=== PATIENT | male | born 1940 | race Caucasian/White ===

== ENCOUNTER 2021-11-20 13:03 | Outpatient (CLI) | payer MEDICARE, MEDICAID | END 2021-11-20 13:04 | disposition critical access hospital (66) | LOC: EMS 13:03 | DX: R07.1 Chest pain on breathing (principal); M54.9 Dorsalgia, unspecified | CPT/HCPCS: A0425; A0429 ==

== ENCOUNTER 2021-11-20 13:20 | Emergency (ER) | payer MEDICARE, MEDICAID ==
[2021-11-20] MEDS ORDERED: DEXAMETHASONE 10 MG/ML VIAL IVP STA (14:00)
[2021-11-20] MEDS ORDERED: SODIUM CHLORIDE 0.9% 1,000 ML IV STA (14:00)
[2021-11-20] MEDS ORDERED: KETOROLAC 30 MG/ML VIAL IVP STA (14:00)
--- NOTE | 2021-11-20 14:02 | ED Physician Documentation ---
PD HPI DYSPNEA - Stated complaint Stated Complaint: SOA/PX - Chief complaint Chief Complaint: Back Pain - History obtained from History obtained from: Patient - History of Present Illness Timing - onset: How many days ago (10) Timing - onset during: Rest Timing - duration: Days (10) Timing - details: Gradual onset, Still present Inciting event(s): URI Improved by: Rest Worsened by: Exertion, Coughing Associated symptoms: Fever, Cough, Wheezing Similar symptoms before: Has not had sx before Recently seen: Not recently seen - Additional information Additional information: Previously well 81-year-old male who does not have a doctor or go to the doctor as developed dyspnea and associated back pain over the past 10 days. He is complaining that it is difficult for him to get any comfort at all by any position for any length of time. He has an ache to his back that is the entire back and he is just uncomfortable. He does have a cough is not bringing any phlegm up he is coughing 6 or 7 times a day he has intermittent fever he is unvaccinated for Covid. Review of Systems Constitutional: reports: Fever, Myalgias, Fatigue Eyes: denies: Decreased vision Ears: denies: Ear pain Nose: reports: Congestion. denies: Rhinorrhea / runny nose Throat: denies: Sore throat Cardiac: denies: Chest pain / pressure, Palpitations, Pedal edema, Calf pain Respiratory: reports: Dyspnea, Cough GI: denies: Abdominal Pain, Nausea, Vomiting, Diarrhea : denies: Dysuria, Frequency Skin: denies: Rash Musculoskeletal: reports: Back pain. denies: Neck pain, Extremity pain Neurologic: denies: Generalized weakness, Focal weakness, Numbness PD PAST MEDICAL HISTORY - Present Medications Home Medications: Ambulatory Orders Medication Instructions Recorded Confirmed Albuterol Sulf [Ventolin Hfa 1 - 2 puffs INH Q4HR PRN #1 inhaler 11/20/21 Inhaler] Dexamethasone [Decadron] 6 mg PO DAILY #8 tablet 11/20/21 HYDROcod/ACETAM 5/325 [[place] 5/325] 1 - 2 tablet PO Q6H PRN #14 tablet 11/20/21 - Allergies Allergies/Adverse Reactions: Allergies Allergy/AdvReac Type Severity Reaction Status Date / Time No Known Drug Allergies Allergy Verified 11/20/21 13:30 PD ED PE NORMAL - Vitals Vital signs reviewed: Yes (hypertensive ) - General General: Alert and oriented X 3, No acute distress, Well developed/nourished - HEENT HEENT: Atraumatic, PERRL, EOMI - Neck Neck: Supple, no meningeal sign, No bony TTP - Cardiac Cardiac: RRR, No murmur - Respiratory Respiratory: Other (tachypneic at rest with shallow breaths and inspritory crackles at the bases. ) - Abdomen Abdomen: Soft, Non tender - Back Back: No CVA TTP, No spinal TTP - Derm Derm: Normal color, Warm and dry, No rash - Extremities Extremities: No deformity, No edema - Neuro Neuro: Alert and oriented X 3, hris administrator 2-12 intact, No motor deficit, No sensory deficit, Normal speech Eye Opening: Spontaneous Motor: Obeys Commands Verbal: Oriented GCS Score: 15 - Psych Psych: Normal mood, Normal affect Results - Vitals Vitals: Vital Signs - 24 hr 11/20/21 11/20/21 11/20/21 13:25 13:49 15:44 Temperature 37.7 C Heart Rate 82 78 Respiratory 22 22 28 H Rate Blood Pressure 169/95 H O2 Saturation 96 96 11/20/21 16:10 Temperature Heart Rate 78 Respiratory 21 Rate Blood Pressure 165/85 H O2 Saturation 97 Oxygen O2 Source Room air Oxygen Flow Rate 2 - Labs Labs: Laboratory Tests 11/20/21 11/20/21 11/20/21 13:40 13:40 13:40 WBC 4.5 L RBC 4.09 L Hgb 14.0 Hct 41.2 L MCV 100.7 H MCH 34.2 H MCHC 34.0 RDW 12.0 Plt Count 46 L MPV 13.3 H Neut # (Auto) 3.5 Lymph # (Auto) 0.7 L Dare # (Auto) 0.4 Eos # (Auto) 0.0 Baso # (Auto) 0.0 Absolute Nucleated RBC 0.00 Band Neuts % (Manual) Not Reportable Abnorm Lymph % (Manual) Not Reportable Nucleated RBC % 0.0 Neutrophils # (Manual) Not Reportable Lymphocytes # (Manual) Not Reportable Monocytes # (Manual) Not Reportable Eosinophils # (Manual) Not Reportable Basophils # (Manual) Not Reportable Differential Comment MANUAL=AUTO DIFF Manual Slide Review Indicated Platelet Estimate DECREASED (<130,000) Platelet Morphology NORMAL APPEARANCE RBC Morph Micro Appear NORMAL APPEARANCE Sodium 135 Potassium 4.3 Chloride 101 Carbon Dioxide 22 Anion Gap 12.0 BUN 19 Creatinine 0.9 Estimated GFR (MDRD) 81 L Glucose 138 H Calcium 9.0 Total Bilirubin 0.8 AST 28 ALT 19 Alkaline Phosphatase 43 B-Natriuretic Peptide 40 Total Protein 7.5 Albumin 4.2 Globulin 3.3 Albumin/Globulin Ratio 1.3 Lipase 31 Nasal Adenovirus (PCR) Nasal B. parapertussis DNA (PCR) Nasal Coronavir 229E PCR Nasal Coronavir HKU1 PCR Nasal Coronavir NL63 PCR Nasal Coronavir OC43 PCR Nasal Enterovir/Rhinovir PCR Nasal Influenza B PCR Nasal Influenza A PCR Nasal Parainfluen 1 PCR Nasal Parainfluen 2 PCR Nasal Parainfluen 3 PCR Nasal Parainfluen 4 PCR Nasal RSV (PCR) Nasal B.pertussis DNA PCR Nasal C.pneumoniae (PCR) Obed Human Metapneumo PCR Nasal M.pneumoniae (PCR) Nasal SARS-CoV-2 (PCR) 11/20/21 14:30 WBC RBC Hgb Hct MCV MCH MCHC RDW Plt Count MPV Neut # (Auto) Lymph # (Auto) Dare # (Auto) Eos # (Auto) Baso # (Auto) Absolute Nucleated RBC Band Neuts % (Manual) Abnorm Lymph % (Manual) Nucleated RBC % Neutrophils # (Manual) Lymphocytes # (Manual) Monocytes # (Manual) Eosinophils # (Manual) Basophils # (Manual) Differential Comment Manual Slide Review Platelet Estimate Platelet Morphology RBC Morph Micro Appear Sodium Potassium Chloride Carbon Dioxide Anion Gap BUN Creatinine Estimated GFR (MDRD) Glucose Calcium Total Bilirubin AST ALT Alkaline Phosphatase B-Natriuretic Peptide Total Protein Albumin Globulin Albumin/Globulin Ratio Lipase Nasal Adenovirus (PCR) NOT DETECTED Nasal B. parapertussis DNA (PCR) NOT DETECTED Nasal Coronavir 229E PCR NOT DETECTED Nasal Coronavir HKU1 PCR NOT DETECTED Nasal Coronavir NL63 PCR NOT DETECTED Nasal Coronavir OC43 PCR NOT DETECTED Nasal Enterovir/Rhinovir PCR NOT DETECTED Nasal Influenza B PCR NOT DETECTED Nasal Influenza A PCR NOT DETECTED Nasal Parainfluen 1 PCR NOT DETECTED Nasal Parainfluen 2 PCR NOT DETECTED Nasal Parainfluen 3 PCR NOT DETECTED Nasal Parainfluen 4 PCR NOT DETECTED Nasal RSV (PCR) NOT DETECTED Nasal B.pertussis DNA PCR NOT DETECTED Nasal C.pneumoniae (PCR) NOT DETECTED Obed Human Metapneumo PCR NOT DETECTED Nasal M.pneumoniae (PCR) NOT DETECTED Nasal SARS-CoV-2 (PCR) DETECTED A - Rads (name of study) chest Radiology: Prelim report reviewed (Impression: No acute process.), EMP read indepedently, See rad report PD MEDICAL DECISION MAKING - ED course Complexity details: reviewed results, re-evaluated patient, considered differential, d/w patient ED course: 81-year-old male with a URI for the past 10 days test positive for Covid here in the emergency department his chest x-ray is without evidence of infiltrate. He does have some shortness of breath and diminished breath sounds. He is administered IV saline, toradal, decadron and a duo-neb treatment. He has improvement in his breathing and back pain. He is not hypoxic. We made arran gement for the patient to get back home. We made arrangements to picker his medications for him as well. Departure - Departure Disposition: 01 Home, Self Care Clinical Impression: COVID Condition: Stable Instructions: COVID-19 [facility], Flu and Cold: Nutrition, Prevention and Treatment Tips Follow-Up: Maximiliano Funez MD [Provider Admit Priv/Credential] - Prescriptions: Albuterol Sulf [Ventolin Hfa Inhaler] 1 - 2 puffs INH Q4HR PRN #1 inhaler PRN Reason: Shortness Of Air/Wheezing Dexamethasone [Decadron] 6 mg PO DAILY #8 tablet HYDROcod/ACETAM 5/325 [Collins 5/325] 1 - 2 tablet PO Q6H PRN #14 tablet PRN Reason: Pain Comments: Mars, today you have Covid and it looks like you have had Covid for more than 1 week. You have probably passed the danger area of this. I have written a prescription for some dexamethasone to be taken for the next 8 days. In addition I have written a prescription for some albuterol to use as an inhaler as needed and some hydrocodone to use as needed for pain control. If you have worsening of your symptoms worsening shortness of breath return to the emergency department.
[2021-11-20 14:07] LABS: EOSINOPHILS % (AUTO) 0.2 %; HCT - HEMATOCRIT 41.2 % (42.0-52.0); LYMPHOCYTES # (AUTO) 0.7 10^3/uL (1.5-3.5); LYMPHOCYTES % (AUTO) 15.6 %; MEAN CORPUSCULAR HEMOGLOBIN 34.2 pg (27.0-31.0); MEAN CORPUSCULAR VOLUME 100.7 fL (80.0-94.0); MEAN PLATELET VOLUME 13.3 fL (7.4-11.4); MONOCYTES # (AUTO) 0.4 10^3/uL (0.0-1.0); MONOCYTES % (AUTO) 7.9 %; NEUTROPHILS # (AUTO) 3.5 10^3/uL (1.5-6.6); NEUTROPHILS % (AUTO) 76.1 %; PLT - PLATELET COUNT 46 10^3/uL (130-450); RED BLOOD COUNT 4.09 10^6/uL (4.70-6.10); WHITE BLOOD COUNT 4.5 x10^3/uL (4.8-10.8)
[2021-11-20 14:10] LABS: SLIDE REVIEW? Indicated
[2021-11-20 14:15] LABS: ALBUMIN 4.2 g/dL (3.2-5.5); ALBUMIN/GLOBULIN RATIO 1.3 (1.0-2.2); BILIRUBIN,TOTAL 0.8 mg/dL (0.2-1.0); CREATININE 0.9 mg/dL (0.6-1.2); POTASSIUM 4.3 mmol/L (3.5-5.0); TOTAL PROTEIN 7.5 g/dL (6.7-8.2)
--- NOTE | 2021-11-20 14:31 | XRAY Report ---
PROCEDURE: Chest 1 View X-Ray INDICATIONS: chest pain TECHNIQUE: One view of the chest was acquired. COMPARISON: None FINDINGS: Surgical changes and devices: None. Lungs and pleura: No pleural effusions or pneumothorax. Lungs are clear. Mediastinum: Mediastinal contours appear normal. Heart size is normal. Bones and chest wall: No suspicious bony lesions. Overlying soft tissues appear unremarkable. IMPRESSION: No acute process. Reviewed by: Rony Caballero MD on 11/20/2021 2:30 PM PST Approved by: Rony Caballero MD on 11/20/2021 2:30 PM PST Station ID: [id number]
[2021-11-20] MEDS ORDERED: IPRATROPIUM/ALBUTEROL 3 ML NEB INH STA (14:47)
[2021-11-20 15:16] LABS: DIFFERENTIAL COMMENT MANUAL=AUTO DIFF; PLATELET ESTIMATE, MANUAL DECREASED (<130,000) (NORMAL); PLATELET MORPHOLOGY NORMAL APPEARANCE (NORMAL); RBC MORPHOLOGY (MULTIPLE) NORMAL APPEARANCE (NORMAL)
[2021-11-20 15:29] LABS: CORONAVIRUS 229E-RESP PCR NOT DETECTED; CORONAVIRUS HKU1-RESP PCR NOT DETECTED; CORONAVIRUS NL63-RESP PCR NOT DETECTED; CORONAVIRUS OC43-RESP PCR NOT DETECTED
[2021-11-20 15:33] LABS: B. PARAPERTUSSIS- RESP PCR PAN NOT DETECTED; HUMAN METAPNEUMOVIRUS NOT DETECTED; INFLUENZA A- RESP PCR PANEL NOT DETECTED; INFLUENZA B - RESP PCR PANEL NOT DETECTED; PARAINFLUENZA VIRUS 1 NOT DETECTED; PARAINFLUENZA VIRUS 2 NOT DETECTED; PARAINFLUENZA VIRUS 3 NOT DETECTED; PARAINFLUENZA VIRUS 4 NOT DETECTED; RHINOVIRUS/ENTEROVIRUS NOT DETECTED; RSV- RESP PCR PANEL NOT DETECTED; SARS-CoV-2 -RESP PCR PANEL DETECTED
[2021-11-20 15:34] LABS: B. PERTUSSIS- RESP PCR PANEL NOT DETECTED; C. PNEUMONIAE- RESP PCR PANEL NOT DETECTED; M. PNEUMONIAE- RESP PCR PANEL NOT DETECTED
[2021-11-20 18:16] VITALS: BP 165/95
== END 2021-11-20 19:32 | disposition home or self-care (01) ==
LOC: EDUNIT# → ED 13:20
DX: U07.1 COVID-19 (principal); J06.9 Acute upper respiratory infection, unspecified
CPT/HCPCS: 0202U; 36415; 80053; 83690; 83880; 85025; 94640; 94664; 96374; 99282

== ENCOUNTER 2021-11-20 19:31 | Outpatient (CLI) | payer MEDICARE, MEDICAID | END 2021-11-20 19:32 | disposition home or self-care (01) | LOC: EMS 19:31 | PROVIDERS: ATTEND Emergency Medicine | DX: U07.1 COVID-19 (principal) | CPT/HCPCS: A0425; A0428 ==

== ENCOUNTER 2021-11-25 15:06 | Outpatient (CLI) | payer MEDICARE, MEDICAID | END 2021-11-25 15:07 | disposition critical access hospital (66) | LOC: EMS 15:06 | DX: U07.1 COVID-19 (principal) | CPT/HCPCS: A0425; A0429 ==

== ENCOUNTER 2021-11-25 15:22 | Emergency (ER) | payer MEDICARE, MEDICAID ==
--- NOTE | 2021-11-25 15:52 | XRAY Report ---
PROCEDURE: Chest 1 View X-Ray INDICATIONS: Chest Pain TECHNIQUE: One view of the chest was acquired. COMPARISON: November 20, 2021 FINDINGS: SUPPORT DEVICES: None. LUNGS/PLEURA: Bibasilar streaky densities, likely reflecting atelectasis. No focal consolidation, ple ural effusion or space-occupying pneumothorax. MEDIASTINUM: The cardiomediastinal silhouette is within normal limits. BONES/SOFT TISSUES: No acute abnormality. IMPRESSION: 1.Bibasilar atelectasis. Reviewed by: Casimiro Marmolejo MD on 11/25/2021 3:51 PM PST Approved by: Casimiro Marmolejo MD on 11/25/2021 3:51 PM [facility] Station ID: [id number]
--- NOTE | 2021-11-25 16:06 | ED Physician Documentation ---
History of Present Illness - Stated complaint Stated Complaint: C+/SOA - Chief complaint Chief Complaint: Resp - Additonal information Additional information: 81-year-old male return to the emergency department for evaluation of shortness of air especially at rest. He states that it is better when he walks. He was seen in this ER recently for similar found to be COVID-19 positive. He is completing a course of Decadron as well as albuterol. Patient states that he is not yet vaccinated for COVID-19. He presented via EMS with room air saturations of 94 to 97% and remains at 97% here without oxygen therapy. Since being discharged home a few days ago he states that he has had some constipation though this is not a new symptom. He is denying chest pain, fevers, nausea or vomiting. Review of Systems Constitutional: reports: Fatigue. denies: Fever, Chills Eyes: reports: Reviewed and negative Ears: reports: Reviewed and negative Nose: reports: Reviewed and negative Throat: reports: Reviewed and negative Cardiac: denies: Chest pain / pressure, Palpitations, Pedal edema, Calf pain Respiratory: reports: Dyspnea. denies: Cough, Hemoptysis, Wheezing GI: reports: Reviewed and negative : reports: Reviewed and negative Skin: reports: Reviewed and negative Musculoskeletal: reports: Reviewed and negative PD PAST MEDICAL HISTORY - Present Medications Home Medications: Ambulatory Orders Medication Instructions Recorded Confirmed Albuterol Sulf [Ventolin Hfa 1 - 2 puffs INH Q4HR PRN #1 inhaler 11/20/21 Inhaler] Dexamethasone [Decadron] 6 mg PO DAILY #8 tablet 11/20/21 HYDROcod/ACETAM 5/325 [[place] 5/325] 1 - 2 tablet PO Q6H PRN #14 tablet 11/20/21 polyethylene glycoL 3350 [Miralax] 17 gm PO DAILY PRN #1 bottle 11/25/21 - Allergies Allergies/Adverse Reactions: Allergies Allergy/AdvReac Type Severity Reaction Status Date / Time No Known Drug Allergies Allergy Verified 11/25/21 15:30 PD ED PE NORMAL - General General: Alert and oriented X 3, No acute distress, Well developed/nourished - HEENT HEENT: Atraumatic, Moist mucous membranes - Neck Neck: Supple, no meningeal sign, No adenopathy - Cardiac Cardiac: RRR, No murmur, No gallop - Respiratory Respiratory: No respiratory distress, Clear bilaterally - Abdomen Abdomen: Normal bowel sounds, Soft, Non tender - Back Back: No CVA TTP, No spinal TTP - Derm Derm: Normal color, Warm and dry, No rash - Extremities Extremities: No deformity, No tenderness to palpate, Normal ROM s pain - Neuro Neuro: Alert and oriented X 3, multimedia teacher 2-12 intact Eye Opening: Spontaneous Motor: Obeys Commands Verbal: Oriented GCS Score: 15 Results - Vitals Vitals: Vital Signs - 24 hr 11/25/21 15:27 Temperature 35.9 C L Heart Rate 65 Respiratory 20 Rate Blood Pressure 202/105 H O2 Saturation 97 Oxygen O2 Source Room air - EKG (time done) 1605 Rate: Rate (enter#) (63) Rhythm: NSR [place]: Normal, Anterior hemiblock Intervals: Normal MO. No: Prolonged QT QRS: Normal Ischemia: Non specific changes (inferior leads) Compare to prior EKG: Old EKG unavailable Computer interpretation: Agree with computer - Labs Labs: Laboratory Tests 11/25/21 11/25/21 11/25/21 15:59 15:59 15:59 WBC 7.0 RBC 3.88 L Hgb 13.1 L Hct 38.2 L MCV 98.5 H MCH 33.8 H MCHC 34.3 RDW 11.6 L Plt Count 62 L MPV 13.5 H Neut # (Auto) 6.2 Lymph # (Auto) 0.4 L Schuyler # (Auto) 0.3 Eos # (Auto) 0.0 Baso # (Auto) 0.0 Absolute Nucleated RBC 0.00 Band Neuts % (Manual) Not Reportable Abnorm Lymph % (Manual) Not Reportable Nucleated RBC % 0.0 Neutrophils # (Manual) Not Reportable Lymphocytes # (Manual) Not Reportable Monocytes # (Manual) Not Reportable Eosinophils # (Manual) Not Reportable Basophils # (Manual) Not Reportable Differential Comment MANUAL=AUTO DIFF Platelet Estimate DECREASED (<130,000) Platelet Morphology 1+ GIANT PLATELETS RBC Morph Micro Appear NORMAL APPEARANCE PT 11.7 INR 1.1 Sodium 131 L Potassium 4.2 Chloride 98 L Carbon Dioxide 23 Anion Gap 10.0 BUN 24 H Creatinine 0.7 Estimated GFR (MDRD) 109 Glucose 218 H Calcium 8.6 Total Bilirubin 0.6 AST 26 ALT 39 Alkaline Phosphatase 44 Troponin I High Sens Total Protein 6.5 L Albumin 3.5 Globulin 3.0 Albumin/Globulin Ratio 1.2 Lipase 40 11/25/21 15:59 WBC RBC Hgb Hct MCV MCH MCHC RDW Plt Count MPV Neut # (Auto) Lymph # (Auto) Schuyler # (Auto) Eos # (Auto) Baso # (Auto) Absolute Nucleated RBC Band Neuts % (Manual) Abnorm Lymph % (Manual) Nucleated RBC % Neutrophils # (Manual) Lymphocytes # (Manual) Monocytes # (Manual) Eosinophils # (Manual) Basophils # (Manual) Differential Comment Platelet Estimate Platelet Morphology RBC Morph Micro Appear PT INR Sodium Potassium Chloride Carbon Dioxide Anion Gap BUN Creatinine Estimated GFR (MDRD) Glucose Calcium Total Bilirubin AST ALT Alkaline Phosphatase Troponin I High Sens 8.2 Total Protein Albumin Globulin Albumin/Globulin Ratio Lipase - Rads (name of study) CXR Radiology: Final report received (bibasilar atelectasis) PD MEDICAL DECISION MAKING - ED course Complexity details: reviewed results, re-evaluated patient, considered differential, d/w patient ED course: 81-year-old male presents to the emergency department for evaluation of shortness of air and fatigue and generalized weakness. He was diagnosed as Covid positive on 20 November. He reports that at home he is able to do his activities laundry dishes and shower. However he just feels short of air. He has no hypoxia. He does not require oxygen. Repeat chest x-ray today does not show any focal infiltrates. Screening labs show a negative troponin. His sodium is mildly low at 131. NO clinical evidence of CHF. I discussed with patient the etiology of symptoms. no admittable diagnosis. No calf pain, leg swelling. Low risk by wells criteria. Emergent return precautions discussed Departure - Departure Disposition: Home, Self Care Clinical Impression: Generalized weakness, Shortness of breath Condition: Stable Record reviewed to determine appropriate education?: Yes Prescriptions: polyethylene glycoL 3350 [Miralax] 17 gm PO DAILY PRN #1 bottle PRN Reason: Constipation Comments: Mars you are seen in the emergency department today for generalized weakness and shortness of air. You were confirmed positive for COVID-19 with your last ER visit. However reassuringly your oxygen levels are normal and you do not require oxygen. Your chest x-ray today does not show infiltrates or pneumonia. It is very common for those that have COVID-19 to feel very tired fatigued and short of air. Please finish the full course of steroids prescribed for you with your last ER visit. You can continue to use the albuterol 2-3 times a day. If you develop chest pain, have any fainting episodes then you should return immediately to the ER. You are recommended to obtain the COVID-19 vaccine when able At least 90 days from now.
[2021-11-25 16:21] LABS: HCT - HEMATOCRIT 38.2 % (42.0-52.0); HGB - HEMOGLOBIN 13.1 g/dL (14.0-18.0); LYMPHOCYTES # (AUTO) 0.4 10^3/uL (1.5-3.5); LYMPHOCYTES % (AUTO) 5.7 %; MEAN CORPUSCULAR HEMOGLOBIN 33.8 pg (27.0-31.0); MEAN CORPUSCULAR HGB CONC 34.3 g/dL (32.0-36.0); MEAN CORPUSCULAR VOLUME 98.5 fL (80.0-94.0); MEAN PLATELET VOLUME 13.5 fL (7.4-11.4); MONOCYTES # (AUTO) 0.3 10^3/uL (0.0-1.0); MONOCYTES % (AUTO) 4.2 %; NEUTROPHILS # (AUTO) 6.2 10^3/uL (1.5-6.6); NEUTROPHILS % (AUTO) 89.2 %; PLT - PLATELET COUNT 62 10^3/uL (130-450); RED BLOOD COUNT 3.88 10^6/uL (4.70-6.10); RED CELL DISTRIBUTION WIDTH 11.6 % (12.0-15.0)
[2021-11-25 16:31] LABS: ALBUMIN 3.5 g/dL (3.2-5.5); ALBUMIN/GLOBULIN RATIO 1.2 (1.0-2.2); BILIRUBIN,TOTAL 0.6 mg/dL (0.2-1.0); CALCIUM 8.6 mg/dL (8.5-10.3); CREATININE 0.7 mg/dL (0.6-1.2); POTASSIUM 4.2 mmol/L (3.5-5.0); TOTAL PROTEIN 6.5 g/dL (6.7-8.2)
[2021-11-25 16:39] LABS: INR 1.1 (0.8-1.2); PT - PROTHROMBIN TIME 11.7 secs (9.9-12.6)
[2021-11-25 17:04] LABS: DIFFERENTIAL COMMENT MANUAL=AUTO DIFF; PLATELET ESTIMATE, MANUAL DECREASED (<130,000) (NORMAL); RBC MORPHOLOGY (MULTIPLE) NORMAL APPEARANCE (NORMAL)
[2021-11-25 18:39] VITALS: BP 168/96
== END 2021-11-25 18:49 | disposition home or self-care (01) ==
LOC: EDUNIT# → ED 15:22
DX: U07.1 COVID-19 (principal); R06.02 Shortness of breath; R53.1 Weakness; E87.1 Hypo-osmolality and hyponatremia; I44.4 Left anterior fascicular block
CPT/HCPCS: 36415; 80053; 83690; 84484; 85025; 85610; 93005; 99283; 99284

== ENCOUNTER 2021-11-25 18:45 | Outpatient (CLI) | payer MEDICARE, MEDICAID | END 2021-11-25 18:46 | disposition home or self-care (01) | LOC: EMS 18:45 | PROVIDERS: ATTEND Registered Nurse | DX: U07.1 COVID-19 (principal) | CPT/HCPCS: A0425; A0428 ==

== ENCOUNTER 2023-05-14 10:32 | Emergency (ER) | payer MEDICARE, MEDICAID ==
[2023-05-14] MEDS ORDERED: SODIUM CHLORIDE 0.9% 1,000 ML IV STA (11:22)
[2023-05-14 11:43] LABS: BASOPHILS % (AUTO) 0.6 %; EOSINOPHILS # (AUTO) 0.2 10^3/uL (0.0-0.7); EOSINOPHILS % (AUTO) 2.5 %; HCT - HEMATOCRIT 38.6 % (42.0-52.0); HGB - HEMOGLOBIN 12.9 g/dL (14.0-18.0); LYMPHOCYTES # (AUTO) 1.2 10^3/uL (1.5-3.5); LYMPHOCYTES % (AUTO) 18.8 %; MEAN CORPUSCULAR HEMOGLOBIN 33.5 pg (27.0-31.0); MEAN CORPUSCULAR HGB CONC 33.4 g/dL (32.0-36.0); MEAN CORPUSCULAR VOLUME 100.3 fL (80.0-94.0); MEAN PLATELET VOLUME 12.1 fL (7.4-11.4); MONOCYTES # (AUTO) 0.5 10^3/uL (0.0-1.0); MONOCYTES % (AUTO) 7.9 %; NEUTROPHILS # (AUTO) 4.4 10^3/uL (1.5-6.6); PLT - PLATELET COUNT 100 10^3/uL (130-450); RED BLOOD COUNT 3.85 10^6/uL (4.70-6.10); RED CELL DISTRIBUTION WIDTH 12.7 % (12.0-15.0); WHITE BLOOD COUNT 6.3 x10^3/uL (4.8-10.8)
[2023-05-14] MEDS ORDERED: LORazepam 2 MG/ML VIAL IVP STA (11:44)
--- NOTE | 2023-05-14 11:44 | ED Physician Documentation ---
History of Present Illness - Stated complaint Stated Complaint: SOA/WEAK/MHE - Chief complaint Chief Complaint: General - Additonal information Additional information: 83-year-old male was brought to the emergency department by his friend for evaluation of generalized weakness and anxiety. 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 He recently was seen at [facility] where he was told to take a second gabapentin each day as well as was started on Oxy for the leg pain. Patient is also under extreme stress and due to financial issues is having to move housing. Reportedly he needs to be out of his apartment in the next 48 hours. His friend said he called him this morning stated he was weak and shaking. The patient states he felt very short of air though he did not have chest pain. In the exam room the patient prefers to keep his eyes closed when talking. He has fluid speech. The vital signs on the monitor show a blood pressure of 143/74. Heart rate is sinus rhythm in the 70s. Room air saturations 100%. Patient appears exceedingly anxious. Patient states he is simply very stressed out. I did offer him a single dose of Ativan for anxiety which he agreed to. Unfortunately no social work is available at [facility] at this time. Review of Systems Constitutional: denies: Fever, Myalgias Throat: reports: Reviewed and negative Cardiac: reports: Reviewed and negative Respiratory: reports: Reviewed and negative GI: reports: Reviewed and negative : reports: Reviewed and negative Neurologic: reports: Generalized weakness Psychiatric: reports: Anxiety. denies: Suicidal, Homicidal, Hallucinations, Delusions PD PAST MEDICAL HISTORY - Past Medical History Past Medical History: Yes Respiratory: Other Other Past Medical History: COVID - Past Surgical History Past Surgical History: Yes General: Colonoscopy - Present Medications Home Medications: Ambulatory Orders Medication Instructions Recorded Confirmed Albuterol Sulf [Ventolin Hfa 1 - 2 puffs INH Q4HR PRN #1 inhaler 11/20/21 Inhaler] Albuterol Sulf [Ventolin Hfa 1 - 2 puffs INH Q4HR PRN #1 each 05/14/23 Inhaler] Gabapentin [Neurontin] 300 mg PO HS 05/14/23 05/14/23 LORazepam [Ativan] 1 mg PO BID PRN #10 tablet 05/14/23 Oxycodone HCl/Acetaminophen 5 - 325 mg PO PRN PRN 05/14/23 05/14/23 [Percocet 5-325 mg Tablet] - Allergies Allergies/Adverse Reactions: Allergies Allergy/AdvReac Type Severity Reaction Status Date / Time No Known Drug Allergies Allergy Verified 11/25/21 15:30 - Social History Does the pt smoke?: No Smoking Status: Never smoker Does the pt drink ETOH?: No Does the pt have substance abuse?: Yes Substance Use and Type: Marijuana - POLST Patient has POLST: No PD ED PE NORMAL - General General: Alert and oriented X 3. No: No acute distress (Anxious appearing) - HEENT HEENT: Atraumatic - Neck Neck: Supple, no meningeal sign - Cardiac Cardiac: RRR, No murmur - Respiratory Respiratory: Clear bilaterally - Abdomen Abdomen: Normal bowel sounds, Soft - Back Back: No CVA TTP - Derm Derm: Normal color, Warm and dry, No rash - Extremities Extremities: No deformity - Neuro Neuro: Alert and oriented X 3, cutter brake lining 2-12 intact Eye Opening: Spontaneous Motor: Obeys Commands Verbal: Oriented GCS Score: 15 Results - Vitals Vitals: Vital Signs - 24 hr 05/14/23 05/14/23 10:37 11:24 Temperature 36.9 C Heart Rate 70 74 Respiratory 16 20 Rate Blood Pressure 122/82 H 124/70 O2 Saturation 98 100 Oxygen O2 Source Room air - EKG (time done) 1150 EKG releavant findings:: EKG personally interpreted by author of this note. Relevant findings are: Rate: Rate (enter#) (62) Rhythm: NSR Jarratt: Anterior hemiblock Intervals: Normal NM. No: Prolonged QT QRS: Poor R wave progression Ischemia: Non specific changes Compare to prior EKG: Unchanged from prior EKG Computer interpretation: Agree with computer - Labs Labs: Laboratory Tests 05/14/23 05/14/23 05/14/23 11:30 11:30 11:30 WBC 6.3 RBC 3.85 L Hgb 12.9 L Hct 38.6 L MCV 100.3 H MCH 33.5 H MCHC 33.4 RDW 12.7 Plt Count 100 L MPV 12.1 H Neut # (Auto) 4.4 Lymph # (Auto) 1.2 L [place] # (Auto) 0.5 Eos # (Auto) 0.2 Baso # (Auto) 0.0 Absolute Nucleated RBC 0.00 Nucleated RBC % 0.0 Sodium 138 Potassium 3.6 Chloride 108 Carbon Dioxide 23 Anion Gap 7.0 BUN 16 Creatinine 0.9 Estimated GFR (MDRD) 81 L Glucose 138 H Calcium 9.5 Total Bilirubin 0.6 AST 15 ALT 16 Alkaline Phosphatase 38 L Troponin I High Sens B-Natriuretic Peptide 55 Total Protein 6.4 Albumin 4.3 Globulin 2.1 Albumin/Globulin Ratio 2.0 Lipase 15 Urine Color Urine Clarity Urine pH Ur Specific [place] Urine Protein Urine Glucose (UA) Urine Ketones Urine Occult Blood Urine Nitrite Urine Bilirubin Urine Urobilinogen Ur Leukocyte Esterase Ur Microscopic Review Urine Culture Comments 05/14/23 05/14/23 11:30 12:35 WBC RBC Hgb Hct MCV MCH MCHC RDW Plt Count MPV Neut # (Auto) Lymph # (Auto) [place] # (Auto) Eos # (Auto) Baso # (Auto) Absolute Nucleated RBC Nucleated RBC % Sodium Potassium Chloride Carbon Dioxide Anion Gap BUN Creatinine Estimated GFR (MDRD) Glucose Calcium Total Bilirubin AST ALT Alkaline Phosphatase Troponin I High Sens 4.8 B-Natriuretic Peptide Total Protein Albumin Globulin Albumin/Globulin Ratio Lipase Urine Color YELLOW Urine Clarity CLEAR Urine pH 8.0 H Ur Specific [place] 1.015 Urine Protein NEGATIVE Urine Glucose (UA) NEGATIVE Urine Ketones TRACE Urine Occult Blood NEGATIVE Urine Nitrite NEGATIVE Urine Bilirubin NEGATIVE Urine Urobilinogen 0.2 (NORMAL) Ur Leukocyte Esterase NEGATIVE Ur Microscopic Review NOT INDICATED Urine Culture Comments NOT INDICATED - Rads (name of study) CT head Relevant Findings:: Final report received (No acute intracranial process) cxr Relevant Findings:: Final report received (no acute cardiopulmonary process) PD Medical Decision Making - ED course Complexity details: reviewed results, re-evaluated patient, d/w patient ED course: 83-year-old male presented emergency department for evaluation of generalized weakness and significant anxiety. Currently undergoing a lot of stress with the need to move his house and financial concerns. He stated he felt very generally weak. While here in the emergency department nursing staff noted him to ambulate easily without assistance to the bathroom multiple times. His vital signs were without acute abnormality. I did obtain CBC, electrolytes and urinalysis that per my interpretation showed a mild anemia only. He has normal BUN and creatinine. His troponin is not elevated. BNP is not elevated. A chest x-ray showed no acute cardiopulmonary findings. CT of the head was also negative. Clinically the patient does not present as having TIA, CHF, ACS, urinary infections. He presented very anxious and was given 1 mg of Ativan with marked resolution of symptoms. As such I feel that he is stable for discharge home. Limited prescription for Ativan is sent to the patient's preferred pharmacy. 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 Maximiliano Funez regarding. The usual emergent return precautions for worsening symptoms was discussed. Departure - Departure Disposition: 01 Home, Self Care Clinical Impression: Anxiety, Generalized weakness Condition: Stable Record reviewed to determine appropriate education?: Yes Follow-Up: Maximiliano Funez MD [Primary Care Provider] - Prescriptions: Albuterol Sulf [Ventolin Hfa Inhaler] 1 - 2 puffs INH Q4HR PRN #1 each PRN Reason: Shortness Of Air/Wheezing LORazepam [Ativan] 1 mg PO BID PRN #10 tablet PRN Reason: Anxiety Comments: Mars you came to the emergency department because you are very anxious, having shortness of air. Your labs today are all essentially normal. You are not having a heart attack nor you in heart failure. The CT of your brain was normal for age. The x-ray of your chest was normal for age. I suspect the cause of your symptoms anxiety and weakness is simply that you are having a panic attack about the stress and moving. I sent a prescription for some Ativan to the [facility] in [place]. You can use this once or twice daily. Is important you continue to follow very closely with your primary care doctor for longer-term concerns of management with your neuropathy. Forms: PCP List
[2023-05-14 11:54] LABS: ALBUMIN 4.3 g/dL (3.2-5.5); BILIRUBIN,TOTAL 0.6 mg/dL (0.2-1.0); CALCIUM 9.5 mg/dL (8.5-10.3); CREATININE 0.9 mg/dL (0.6-1.3); POTASSIUM 3.6 mmol/L (3.5-4.5); TOTAL PROTEIN 6.4 g/dL (6.4-8.9)
--- NOTE | 2023-05-14 12:53 | CT Report ---
PROCEDURE: CT brain without contrast INDICATIONS: generalized weakness TECHNIQUE: Noncontrast 4.5 mm thick angled axial sections acquired from the foramen magnum to the vertex. For r adiation dose reduction, the following was used: automated exposure control, adjustment of mA and/or kV according to patient size. COMPARISON: None. FINDINGS: Image quality: Excellent. CSF spaces: Basal cisterns are patent. No extra-axial fluid collections. Ventricles are normal in size and shape. Brain: No midline shift. No intracranial masses or hemorrhage. Steele-white matter interface is norm al. Moderate atrophy and white matter chronic ischemic change Skull and face: Calvarium and visualized facial bones are intact, without suspicious lesions. Sinuses: Visualized sinuses and mastoids are clear. IMPRESSION: Atrophy and chronic ischemic change without acute hemorrhage or mass effect Reviewed by: Gerard Santiago MD on 05/14/2023 11:52 AM [facility] Approved by: Gerard Santiago MD on 05/14/2023 11:52 AM [facility] Station ID: [id number]
[2023-05-14 12:55] LABS: BILIRUBIN,URINE NEGATIVE (NEGATIVE); GLUCOSE, URINE (UA) NEGATIVE (NEGATIVE); KETONES,URINE (UA) TRACE mg/dL (NEGATIVE); LEUKOCYTE ESTERASE, URINE NEGATIVE (NEGATIVE); NITRITE,URINE NEGATIVE (NEGATIVE); OCCULT BLOOD,URINE NEGATIVE (NEGATIVE); PROTEIN,URINE NEGATIVE (NEGATIVE); UROBILINOGEN,URINE 0.2 (NORMAL) E.U./dL (NORMAL)
--- NOTE | 2023-05-14 13:02 | XRAY Report ---
PROCEDURE: Chest 1 View X-Ray INDICATIONS: SOA TECHNIQUE: One view of the chest was acquired. COMPARISON: 11/25/2021 FINDINGS: Surgical changes and devices: None. Lungs and pleura: No pleural effusions or pneumothorax. Lungs are clear. Mediastinum: Mediastinal contours appear normal. Heart size is normal. Bones and chest wall: No suspicious bony lesions. Overlying soft tissues appear unremarkable. IMPRESSION: No acute cardiopulmonary process. Reviewed by: Gerard Santiago MD on 05/14/2023 12:01 PM [facility] Approved by: Gerard Santiago MD on 05/14/2023 12:01 PM [facility] Station ID: [id number]
[2023-05-14 13:11] LABS: CLARITY,URINE CLEAR (CLEAR)
[2023-05-14 14:03] VITALS: BP 184/97
== END 2023-05-14 14:11 | disposition home or self-care (01) ==
LOC: ED 10:32
DX: F41.9 Anxiety disorder, unspecified (principal); R53.1 Weakness
CPT/HCPCS: 36415; 70450; 71045; 80053; 81003; 83690; 83880; 84484; 85025; 93005; 96374; 99284; J2060; 81001; 87086

== ENCOUNTER 2023-11-21 14:29 | Outpatient (CLI) | payer MEDICARE, MEDICAID ==
[2023-11-21 15:04] LABS: BILIRUBIN,URINE NEGATIVE (NEGATIVE); GLUCOSE, URINE (UA) NEGATIVE (NEGATIVE); KETONES,URINE (UA) NEGATIVE (NEGATIVE); LEUKOCYTE ESTERASE, URINE SMALL (NEGATIVE); NITRITE,URINE POSITIVE (NEGATIVE); OCCULT BLOOD,URINE LARGE (NEGATIVE); PROTEIN,URINE NEGATIVE (NEGATIVE); UROBILINOGEN,URINE 0.2 (NORMAL) E.U./dL (NORMAL)
[2023-11-21 15:44] LABS: BACTERIA,URINE Many /HPF (None Seen); CLARITY,URINE CLOUDY (CLEAR); RBC,URINE TNTC /HPF (0-5); SQUAMOUS EPITHELIAL CELL,UR RARE Squamous (<= Few); WBC CLUMPS,URINE PRESENT; WBC,URINE >25 /HPF (0-3)
== END 2023-11-21 14:30 | disposition home or self-care (01) ==
LOC: LAB.R 14:29
PROVIDERS: ATTEND Specialist
DX: R33.9 Retention of urine, unspecified (principal)
CPT/HCPCS: 81001; 87077; 87086; 87181

== ENCOUNTER 2023-12-07 08:11 | Outpatient (CLI) | payer MEDICARE, OTHER | END 2023-12-07 23:59 | disposition short-term general hospital (02) | LOC: EMS 08:11 | DX: G47.00 Insomnia, unspecified (principal); F41.9 Anxiety disorder, unspecified; R44.3 Hallucinations, unspecified; R53.1 Weakness | CPT/HCPCS: A0425; A0429 ==

== ENCOUNTER 2023-12-14 16:13 | Outpatient (CLI) | payer MEDICARE | END 2023-12-14 23:59 | disposition EMS.NT | LOC: EMS 16:13 | DX: N30.91 Cystitis, unspecified with hematuria (principal); R53.83 Other fatigue ==

== ENCOUNTER 2023-12-15 09:19 | Outpatient (CLI) | payer MEDICARE | END 2023-12-15 23:59 | disposition short-term general hospital (02) | LOC: EMS 09:19 | DX: R42 Dizziness and giddiness (principal); R10.9 Unspecified abdominal pain | CPT/HCPCS: A0425; A0429; A0888 ==

== ENCOUNTER 2023-12-18 11:04 | Outpatient (CLI) | payer MEDICARE | END 2023-12-18 11:05 | disposition critical access hospital (66) | LOC: EMS 11:04 | DX: R53.1 Weakness (principal); R51.9 Headache, unspecified; G62.9 Polyneuropathy, unspecified; R46.89 Other symptoms and signs involving appearance and behavior | CPT/HCPCS: A0425; A0429 ==

== ENCOUNTER 2023-12-18 11:17 | Inpatient (IN) | payer MEDICARE ==
[2023-12-18 11:52] LABS: BASOPHILS # (AUTO) 0.1 10^3/uL (0.0-0.1); BASOPHILS % (AUTO) 0.8 %; EOSINOPHILS # (AUTO) 0.2 10^3/uL (0.0-0.7); EOSINOPHILS % (AUTO) 3.7 %; HCT - HEMATOCRIT 36.1 % (42.0-52.0); HGB - HEMOGLOBIN 12.2 g/dL (14.0-18.0); LYMPHOCYTES # (AUTO) 1.6 10^3/uL (1.5-3.5); LYMPHOCYTES % (AUTO) 24.8 %; MEAN CORPUSCULAR HEMOGLOBIN 33.2 pg (27.0-31.0); MEAN CORPUSCULAR HGB CONC 33.8 g/dL (32.0-36.0); MEAN CORPUSCULAR VOLUME 98.1 fL (80.0-94.0); MONOCYTES # (AUTO) 0.7 10^3/uL (0.0-1.0); MONOCYTES % (AUTO) 9.9 %; NEUTROPHILS % (AUTO) 60.3 %; PLT - PLATELET COUNT 116 10^3/uL (130-450); RED BLOOD COUNT 3.68 10^6/uL (4.70-6.10); RED CELL DISTRIBUTION WIDTH 12.9 % (12.0-15.0); WHITE BLOOD COUNT 6.6 x10^3/uL (4.8-10.8)
[2023-12-18 12:12] LABS: ALBUMIN 4.1 g/dL (3.2-5.5); ALBUMIN/GLOBULIN RATIO 1.7 (1.0-2.2); ALKALINE PHOSPHATASE 46 IU/L (42-121); ALT ALANINE AMINOTRANSFERASE 18 IU/L (10-60); AST ASPARTATE AMINOTRANSFERASE 15 IU/L (10-42); BILIRUBIN,TOTAL 0.3 mg/dL (0.2-1.0); BUN - BLOOD UREA NITROGEN 20 mg/dL (6-20); CALCIUM 9.6 mg/dL (8.5-10.3); CARBON DIOXIDE - CO2 23 mmol/L (21-32); CHLORIDE 105 mmol/L (101-111); CREATININE 0.9 mg/dL (0.6-1.3); GFR - MDRD 81 (>89); GLUCOSE 132 mg/dL (74-104); SODIUM 135 mmol/L (135-145); TOTAL PROTEIN 6.5 g/dL (6.4-8.9)
[2023-12-18 12:12] LABS: BILIRUBIN,URINE NEGATIVE (NEGATIVE); GLUCOSE, URINE (UA) NEGATIVE (NEGATIVE); KETONES,URINE (UA) NEGATIVE (NEGATIVE); LEUKOCYTE ESTERASE, URINE NEGATIVE (NEGATIVE); NITRITE,URINE NEGATIVE (NEGATIVE); OCCULT BLOOD,URINE NEGATIVE (NEGATIVE); PH,URINE 7.5 PH (5.0-7.5); PROTEIN,URINE NEGATIVE (NEGATIVE); UROBILINOGEN,URINE 0.2 (NORMAL) E.U./dL (NORMAL)
[2023-12-18 12:13] LABS: LIPASE < 10 U/L (11-82)
[2023-12-18 12:17] LABS: CLARITY,URINE CLEAR (CLEAR)
[2023-12-18] MEDS: SODIUM CHLORIDE 0.9% 1,000 ML IV STA (12:40)
--- NOTE | 2023-12-18 12:59 | ED Physician Documentation ---
History of Present Illness - Stated complaint Stated Complaint: WEAKNESS/PX ALL OVER - Chief complaint Chief Complaint: General - History obtained from History obtained from: Patient - History of Present Illness Timing: How many weeks ago (5) - Additonal information Additional information: 83 y/o male with a history of anxiety and indwelling woods cath s/p colectomy in Jun 2023 presents to the ED today with chief complaint of weakness and generalized pain. He is a tangential historian and questions are met with questions and new problems. He is complaining of pain to the side of his face on the left in episodes. He feels he is unable to care for himself at home. He does have a friend that will help him with groceries and transportation. He indicates that on he was able to cook and entertain guests. He complains that the staff at [facility] were mean to him. Review of Systems Constitutional: reports: Myalgias. denies: Fever, Chills Eyes: denies: Photophobia Ears: denies: Ear pain Nose: reports: Congestion. denies: Rhinorrhea / runny nose Throat: denies: Sore throat Cardiac: denies: Chest pain / pressure, Palpitations Respiratory: denies: Dyspnea, Cough GI: reports: Constipation. denies: Abdominal Pain, Nausea, Vomiting : denies: Dysuria, Frequency Skin: denies: Rash Musculoskeletal: reports: Back pain. denies: Neck pain Neurologic: reports: Generalized weakness, Headache. denies: Focal weakness, Numbness, Difficulty speaking, Head injury, LOC PD PAST MEDICAL HISTORY - Past Medical History Past Medical History: Yes Respiratory: Other : Benign prostate hypertrophy, Indwelling catheter - Past Surgical History Past Surgical History: Yes General: Colonoscopy - Present Medications Home Medications: Ambulatory Orders Medication Instructions Recorded Confirmed Finasteride [Proscar] 5 mg PO DAILY 12/18/23 12/18/23 oxyCODONE [Roxicodone] 5 mg PO ONCE 12/18/23 12/18/23 - Allergies Allergies/Adverse Reactions: Allergies Allergy/AdvReac Type Severity Reaction Status Date / Time acetaminophen Allergy Unknown Verified 12/18/23 12:01 aspirin Allergy Unknown Verified 12/18/23 12:01 fluoxetine Allergy Unknown Verified 12/18/23 12:01 ibuprofen Allergy Unknown Verified 12/18/23 12:01 - Social History Does the pt smoke?: No Smoking Status: Never smoker Does the pt drink ETOH?: No Does the pt have substance abuse?: Yes - POLST Patient has POLST: No PD ED PE NORMAL - Vitals Vital signs reviewed: Yes (hypertensive ) - General General: Alert and oriented X 3, Well developed/nourished, Other (flattened affect clinical trial data manager tone. ) - HEENT HEENT: Atraumatic, PERRL, EOMI, Other (dry mucous membranes ) - Neck Neck: Supple, no meningeal sign, No bony TTP - Cardiac Cardiac: RRR, No murmur - Respiratory Respiratory: No respiratory distress, Other (diminished breath sounds smells heavily of tobacco.) - Abdomen Abdomen: Soft, Non tender - Back Back: No CVA TTP, No spinal TTP - Derm Derm: Normal color, Warm and dry, No rash - Extremities Extremities: No deformity, No edema - Neuro Neuro: Alert and oriented X 3, data entry operator 2-12 intact, No motor deficit, No sensory deficit, Normal speech Eye Opening: Spontaneous Motor: Obeys Commands Verbal: Oriented GCS Score: 15 - Psych Psych: Other (mood is defeated affect is blunted) Results - Vitals Vitals: Vital Signs - 24 hr 12/18/23 12/18/23 12/18/23 11:29 13:50 15:00 Temperature 36.7 C Heart Rate 71 73 63 Respiratory 18 16 18 Rate Blood Pressure 162/90 H 155/86 H 135/95 H O2 Saturation 100 96 95 12/18/23 17:38 Temperature Heart Rate 74 Respiratory 16 Rate Blood Pressure 145/91 H O2 Saturation 95 Oxygen O2 Source Room air - Labs Labs: Laboratory Tests 12/18/23 12/18/23 12/18/23 11:44 11:44 11:59 WBC 6.6 RBC 3.68 L Hgb 12.2 L Hct 36.1 L MCV 98.1 H MCH 33.2 H MCHC 33.8 RDW 12.9 Plt Count 116 L MPV 12.0 H Neut # (Auto) 4.0 Lymph # (Auto) 1.6 [place] # (Auto) 0.7 Eos # (Auto) 0.2 Baso # (Auto) 0.1 Absolute Nucleated RBC 0.00 Nucleated RBC % 0.0 Sodium 135 Potassium 4.0 Chloride 105 Carbon Dioxide 23 Anion Gap 7.0 BUN 20 Creatinine 0.9 Estimated GFR (MDRD) 81 L Glucose 132 H Calcium 9.6 Total Bilirubin 0.3 AST 15 ALT 18 Alkaline Phosphatase 46 Total Protein 6.5 Albumin 4.1 Globulin 2.4 Albumin/Globulin Ratio 1.7 Lipase < 10 L Urine Color YELLOW Urine Clarity CLEAR Urine pH 7.5 Ur Specific [place] 1.010 Urine Protein NEGATIVE Urine Glucose (UA) NEGATIVE Urine Ketones NEGATIVE Urine Occult Blood NEGATIVE Urine Nitrite NEGATIVE Urine Bilirubin NEGATIVE Urine Urobilinogen 0.2 (NORMAL) Ur Leukocyte Esterase NEGATIVE Ur Microscopic Review NOT INDICATED Urine Culture Comments NOT INDICATED Procedures - IVC sono (time) 1150 Bedside IVC sono: IVC measures (cm) (1.22), IVC collapsed c insp (cm) (complete), Dehydration (est 1 liter deficit) PD Medical Decision Making - ED course Complexity details: reviewed old records, reviewed results, re-evaluated patient, considered differential, d/w patient Reviewed Lab Results: We reviewed a complete blood count showing a normal white blood cell count hemoglobin depressed at 12.2 and hematocrit depressed at 36.1 both of these similar to what the patient has had in the previous year. Platelets are low at 116,000 and the patient has previously had platelets lower than this on all prior draws. Patient's electrolytes are normal kidney and liver function normal lipase less than 10 urinalysis shows clear urine with a specific gravity 1.010. These laboratory tests all show improvement or stability and do not contribute to a specific diagnosis. The patient's primary concern of weakness and pain are not evident in laboratory studies. ED course: Mars Cooney presents to the emergency department with a chief complaint of weakness and inability to care for himself at home. He is having episodes of pain.We performed perform some routine blood work and found no specific specific abnormalities that were have actionable. I did interrogate his inferior vena cava with POCUS and found him to be dehydrated on the order of 1 L. He was administered a liter of saline with some improvement. We had social work come talk to the patient and She has put in a referral to [facility]PS and a referral for PT OT and nursing evaluation at home.The patient did pass a road test here in the emergency department and I find no actionable reason to admit the patient to the hospital. I do not find the patient a unsafe discharge.The patient disagrees with me and wants to stay in the emergency department overnight for reevaluation by social work in the morning with the idea that he will need placement in a facility that we will be able to help him. At shift change his CT read and rib films are being read. My read is no specific disease. Care is turned over to the evening doctor with anticipation of further evaluation by social work tomorrow. Departure - Departure Clinical Impression: Dehydration Condition: Stable Instructions: ED Dehydration Follow-Up: Maximiliano Funez MD [Provider Admit Priv/Credential] - Comments: Mars, today it looks like we found that you had some mild dehydration and we have provided some intravenous fluids. We did not find other abnormalities that needed correction. I understand that you are feeling weak and are having trouble caring for yourself at home especially with your peripheral neuropathy and we have consulted social work and they have put out a referral for home nursing evaluation. You may need assistance at home or even placement into an assisted living facility.
--- NOTE | 2023-12-18 19:20 | CT Report ---
PROCEDURE: CT brain without contrast INDICATIONS: L sided severe headache TECHNIQUE: Helical axial CT of the brain was obtained without contrast and reformatted in multiple p lanes. Radiation dose reduction was achieved using automated exposure control or adjustment of mA and /or kV according to patient size. COMPARISON: None FINDINGS: CSF spaces: Ventricles are appropriate in size and position. No hydrocephalus. Basal cisterns unre markable. Brain: No midline shift. No intracranial masses or hemorrhage. Steele-white matter interface is norm al. Skull and face: Calvarium and skull base are unremarkable without suspicious lesion. Sinuses: Visualized sinuses and mastoids are clear. IMPRESSION: Mild atrophy and white matter chronic ischemic change. No intracranial hemorrhage. Reviewed by: Gerard Santiago MD on 12/18/2023 6:19 PM [facility] Approved by: Gerard Santiago MD on 12/18/2023 6:19 PM [facility] Station ID: [id number]
--- NOTE | 2023-12-18 19:24 | XRAY Report ---
PROCEDURE: Ribs w/PA Chest 3+V LT INDICATIONS: point tenderness to specific rib on L lower chest TECHNIQUE: 2 views of the ribs were acquired, along with a single view chest. COMPARISON: 05/14/2023 FINDINGS: Surgical changes and devices: None. Bones and chest wall: No displaced fracture. No dislocation. Lungs and pleura: No dense consolidation or pleural effusion. Mediastinum: Normal heart size IMPRESSION: No acute radiographic abnormality. If there is high concern for occult injury, consider repeat radiog pamela or cross-sectional imaging. Reviewed by: Bladimir Reynoso MD on 12/18/2023 7:22 PM PST Approved by: Bladimir Reynoso MD on 12/18/2023 7:22 PM PST Station ID: [id number]
--- NOTE | 2023-12-18 20:57 | ED Physician Documentation ---
ED Addendum - Addendum Addendum: 12/18/23 20:55 no changes during my shift. signed out to oncoming ED physician.
[2023-12-18] MEDS: oxyCODONE 5 MG TABLET PO PRN (21:35)
[2023-12-19] MEDS: MAGNESIUM HYDROXIDE 2,400 MG/30 ML UDC PO STA (03:02)
[2023-12-19] MEDS: FINASTERIDE 5 MG TABLET PO SCH (09:23)
--- NOTE | 2023-12-19 17:15 | ED Physician Documentation ---
ED Addendum - Addendum Addendum: 12/19/23 17:12 The patient has been resting in bed through the day. He had evaluation by occupational and physical therapies. Social work was talking and working with him as well. Recommendation from OT/PT is the patient was not mobile well and had under conditioning and would benefit from rehab. As such social work is looking at [facility] and they are reviewing the chart. However the patient needs to be reviewed by his insurance and also a reviewer from [place] [facility] I believe it is. This will be a 2 to 3-day process most likely. The patient's home orders had been written already along with diet and hospital bed by previous provider. I amended his as needed oxycodone to her regular dosing as he states he has had that at home and was annoyed at having to ask for it regularly. The patient was complaining some of the food. I told him he was allowed to have friends bring food in for him if he did not like the current. He is aware that this will be a few day process most likely. I did reaffirm for him that if he was more comfortable with trying to set up other home health care and discharge home that our social work would be happy to try to arrange other home therapies for him.
[2023-12-19] MEDS: DOCUSATE SODIUM 100 MG CAPSULE PO STA (19:19)
[2023-12-19] MEDS: LACTULOSE 10 GM /15 ML UDC PO STA (19:20)
[2023-12-19] MEDS: oxyCODONE 5 MG TABLET PO SCH ×2 (19:23→20:39)
[2023-12-20] MEDS: oxyCODONE 5 MG TABLET PO STA (03:42)
[2023-12-20] MEDS: DOCUSATE SODIUM 250 MG CAPSULE PO SCH (08:57)
--- NOTE | 2023-12-20 18:24 | ED Physician Documentation ---
ED Addendum - Addendum Addendum: 12/20/23 18:23 The patient continue with usual medications. He actually was up and ambulatory to the bathroom with walker. Physical therapy did work with him today. Social work is still working on placement as the patient is still interested in that direction. No other problems during the day today.
[2023-12-21] MEDS: oxyCODONE 5 MG TABLET PO SCH (03:03)
--- NOTE | 2023-12-21 07:23 | ED Physician Documentation ---
ED Addendum - Addendum Addendum: 12/21/23 07:41 Patient 83-year-old Male presenting to the emergency department initially with generalized weakness and pain. Subsequently cleared from medical perspective however appears to be a debilitated as a complication of multiple chronic medical issues as well as advanced ageHas been boarding down in the emergency department for 68 hours. No acute events overnight per nursing staff. At approximately 0800 hrs. patient became acutely confused and agitated. When I evaluated the patient he would perseverate and repeat the phrases "I hurt, my feet burn, my belly delgado,". He was not reorientated bowl or redirectable. He did not have any focal or lateralizing neurologic deficits at that time. He was not in any respiratory distress and he had an benign abdominal exam. Nevertheless given this acute change in his mentation I have ordered for repeat labs which are all very reassuring. Of note his urine however does show indications of infection at this time. These include an elevated white blood cell in urine as well as positive nitrates. There are some red blood cells as well. In comparison this is a grossly different urine study to the one that was performed 3 days ago. Overall this is highly concerning for UTI encephalopathy in the setting of a chronic indwelling catheter. Previous culture reviewed, 12/10 was positive for Klebsiella pneumonia resistant to aminopenicillins but otherwise susceptible to antibiotic therapy. Will initiate Rocephin here. Although my clinical suspicion for intra-abdominal pathology is low given the fact that he has having some nonspecific abdominal pain as well as blood in urine I will order for CT of the abdomen pelvis to rule out nephrolithiasis or other such pathology. Graciously accepted by the hospitalist service for further evaluation and treatment. 12/21/23 10:53 12/21/23 10:54 12/21/23 16:50
[2023-12-21] MEDS: diphenhydrAMINE INJ 50 MG/ML VIAL IVP STA (08:04)
[2023-12-21] MEDS: HALOPERIDOL 5 MG/ML VIAL IVP STA (08:04)
[2023-12-21 08:09] LABS: BASOPHILS % (AUTO) 0.5 %; EOSINOPHILS # (AUTO) 0.4 10^3/uL (0.0-0.7); EOSINOPHILS % (AUTO) 5.3 %; HCT - HEMATOCRIT 39.6 % (42.0-52.0); HGB - HEMOGLOBIN 13.3 g/dL (14.0-18.0); LYMPHOCYTES # (AUTO) 1.9 10^3/uL (1.5-3.5); LYMPHOCYTES % (AUTO) 26.4 %; MEAN CORPUSCULAR HEMOGLOBIN 32.8 pg (27.0-31.0); MEAN CORPUSCULAR HGB CONC 33.6 g/dL (32.0-36.0); MEAN CORPUSCULAR VOLUME 97.8 fL (80.0-94.0); MEAN PLATELET VOLUME 11.2 fL (7.4-11.4); MONOCYTES # (AUTO) 0.6 10^3/uL (0.0-1.0); MONOCYTES % (AUTO) 8.5 %; NEUTROPHILS # (AUTO) 4.3 10^3/uL (1.5-6.6); PLT - PLATELET COUNT 119 10^3/uL (130-450); RED BLOOD COUNT 4.05 10^6/uL (4.70-6.10); RED CELL DISTRIBUTION WIDTH 12.9 % (12.0-15.0); WHITE BLOOD COUNT 7.3 x10^3/uL (4.8-10.8)
[2023-12-21 08:22] LABS: ALBUMIN 4.1 g/dL (3.2-5.5); ALBUMIN/GLOBULIN RATIO 1.8 (1.0-2.2); ALKALINE PHOSPHATASE 47 IU/L (42-121); ALT ALANINE AMINOTRANSFERASE 15 IU/L (10-60); AST ASPARTATE AMINOTRANSFERASE 13 IU/L (10-42); BILIRUBIN,TOTAL 0.6 mg/dL (0.2-1.0); BUN - BLOOD UREA NITROGEN 18 mg/dL (6-20); CALCIUM 9.8 mg/dL (8.5-10.3); CARBON DIOXIDE - CO2 25 mmol/L (21-32); CHLORIDE 105 mmol/L (101-111); CREATININE 0.9 mg/dL (0.6-1.3); GFR - MDRD 81 (>89); GLUCOSE 189 mg/dL (74-104); LIPASE < 10 U/L (11-82); MAGNESIUM 1.8 mg/dL (1.7-2.3); POTASSIUM 4.3 mmol/L (3.5-4.5); SODIUM 137 mmol/L (135-145); TOTAL PROTEIN 6.4 g/dL (6.4-8.9)
--- NOTE | 2023-12-21 09:06 | CT Report ---
PROCEDURE: Head WO INDICATIONS: AMS TECHNIQUE: Noncontrast 4.5 mm thick angled axial sections acquired from the foramen magnum to the vertex. For r adiation dose reduction, the following was used: automated exposure control, adjustment of mA and/or kV according to patient size. COMPARISON: 05/13/2023. FINDINGS: Image quality: Excellent. CSF spaces: Basal cisterns are patent. No extra-axial fluid collections. Ventricles are normal in size and shape. Brain: No midline shift. No intracranial masses or hemorrhage. Steele-white matter interface is norm al. Age-related volume loss and small vessel ischemic change. Cranial carotid calcifications. Findin gs are stable. Skull and face: Calvarium and visualized facial bones are intact, without suspicious lesions. Sinuses: Visualized sinuses and mastoids are clear. IMPRESSION: No acute intracranial pathology. Reviewed by: Gino Campos MD on 12/21/2023 9:04 AM PST Approved by: Gino Campos MD on 12/21/2023 9:04 AM PST Station ID: [id number]
[2023-12-21 10:13] LABS: BILIRUBIN,URINE NEGATIVE (NEGATIVE); GLUCOSE, URINE (UA) NEGATIVE (NEGATIVE); KETONES,URINE (UA) NEGATIVE (NEGATIVE); LEUKOCYTE ESTERASE, URINE MODERATE (NEGATIVE); NITRITE,URINE POSITIVE (NEGATIVE); OCCULT BLOOD,URINE LARGE (NEGATIVE); PROTEIN,URINE NEGATIVE (NEGATIVE); UROBILINOGEN,URINE 0.2 (NORMAL) E.U./dL (NORMAL)
[2023-12-21 10:14] LABS: CLARITY,URINE CLEAR (CLEAR)
[2023-12-21 10:20] LABS: BACTERIA,URINE Few /HPF (None Seen); RBC,URINE TNTC /HPF (0-5); SQUAMOUS EPITHELIAL CELL,UR FEW Squamous (<= Few); WBC CLUMPS,URINE PRESENT; WBC,URINE >25 /HPF (0-3)
[2023-12-21] MEDS: cefTRIAXone 1 GM VIAL IVP STA (11:05)
[2023-12-21] MEDS ORDERED: SODIUM CHLORIDE FLUSH 0.9% 10 ML SYRINGE IVP PRN (12:02)
[2023-12-21] MEDS ORDERED: ONDANSETRON ODT 4 MG TABLET TL PRN (12:02)
[2023-12-21] MEDS ORDERED: ONDANSETRON 4 MG/2 ML VIAL IVP PRN (12:02)
--- NOTE | 2023-12-21 12:06 | HISTORY & PHYSICAL EXAMINATION ---
Chief Complaint - Chief Complaint Chief Complaint: Transient altered mental status, Generalized weakness History of Present Illness - Admitted From Admitted From:: ED - History Obtained From Records Reviewed: Yes History obtained from: ED provider and patient Exam Limitations: No - History of Present Illness HPI Comment/Other: An 83 years old male with history of BPH, chronic Ayon was placed in May 2023 for recurrent renal stone infection, follows and urology Dr. Hernandez Presented to the ED 12/18/2023 with chief complaints of Generalized weakness And overall pain for weeks, patient lived alone, came to seek for help. . Initially patient was planned to be discharged to short-term rehab. However patient was not able to be placed right away, patient had 3 days ED stay. 12/18/2023 his Ayon was exchanged, at that time urine test was negative for infection. However during the ED stay, patient started to have altered mental status especially 12/21/2023 in the morning, patient appeared to be altered, has signs of delirium. Further workup was done in the ED, UA shows sign of infection, With positive nitrate and large LE. Patient Had to receive Haldol to calm down, also received IV fluid in the ED. Blood culture urine culture obtained, ceftriaxone was started patient is admitted for observation at the [facility] unit, await for SNF placement History - Past Medical History Cardiovascular: reports: None Respiratory: reports: None, Other Neuro: reports: None Endocrine/Autoimmune: reports: None GI: reports: None : reports: Benign prostate hypertrophy, Indwelling catheter Psych: reports: Anxiety MRSA Hx?: No Other Past Medical History: benign prostate hypertrophy, indwelling catheter - Past Surgical History General: reports: Colonoscopy - POLST Patient has POLST: No Meds/Allgy - Home Medications Home Medications: Ambulatory Orders Medication Instructions Recorded Confirmed Finasteride [Proscar] 5 mg PO DAILY 12/18/23 12/18/23 oxyCODONE [Roxicodone] 5 mg PO ONCE 12/18/23 12/18/23 Albuterol Sulfate [Proventil Hfa] 1 - 2 puffs INH UD 12/21/23 12/21/23 Escitalopram [Lexapro] 10 mg PO HS 12/21/23 12/21/23 LORazepam [Ativan] 0.5 mg PO TID 12/21/23 12/21/23 - Allergies Allergies/Adverse Reactions: Allergies Allergy/AdvReac Type Severity Reaction Status Date / Time acetaminophen Allergy Unknown Verified 12/18/23 12:01 aspirin Allergy Unknown Verified 12/18/23 12:01 fluoxetine Allergy Unknown Verified 12/18/23 12:01 ibuprofen Allergy Unknown Verified 12/18/23 12:01 Review of Systems - Constitutional Constitutional: reports: Fatigue, Weakness. denies: Fever, Chills - Eyes Eyes: denies: Blurred vision, Dipolpia - Ears, Nose & Throat Ears, Nose & Throat: denies: Hearing loss - Cardiovascular Cariovascular: denies: Irregular heart rate, Palpitations, Chest pain - Respiratory Respiratory: denies: Cough, Wheezing, SOB at rest - Gastrointestinal Gastrointestinal: denies: Abdominal pain, Black stools, Bloody stools - Genitourinary Genitourinary: reports: Other (Ayon since 05/2023) - Musculoskeletal Musculoskeletal: reports: Muscle pain, Back pain, Joint pain - Integumentary Integumentary: denies: Rash - Neurological Neurological: reports: General weakness. denies: Focal weakness, Headache - Psychiatric Psychiatric: reports: Depression, Anxiety - Endocrine Endocrine: denies: Intolerance to cold, Intolerance to heat Prior Level of Functionality: independent ADLs Exam - Vital Signs Reviewed Vital Signs: Yes Vital Signs: Vital Signs x48h Temp Pulse Resp BP Pulse Ox 12/21/23 11:00 72 13 150/95 H 96 12/21/23 08:23 36.4 C L 70 24 139/88 H 94 - Physical Exam General Appearance: positive: No acute distress, Alert, Anxious Eyes Bilateral: positive: Normal inspection ENT: positive: ENT inspection nml Neck: positive: Nml inspection Cardiovascular: positive: Regular rate & rhythm, No murmur, No gallop Peripheral Pulses: positive: 2+ Abdomen: positive: Non-tender, Nml bowel sounds. negative: Guarding, Rebound Skin: positive: Color nml, Warm, Dry Extremities: positive: Non-tender, Full ROM, No pedal edema. negative: Joint swelling Neurologic/Psychiatric: positive: Oriented x3. negative: Facial droop, Slurred/abnml speech Sepsis Event Note (H) - Evaluation Current Stage of Sepsis: Ruled out Conclusion/Plan - Problem List (1) Dehydration Conclusion/Plan: -iv fluid -encourage oral intake (2) UTI (urinary tract infection) due to urinary indwelling catheter Conclusion/Plan: chronic Ayon -Ayon care per unit routine -give ceftrioxone -Await for urine culture blood culture Will consider to transition to oral antibiotics at time of discharge (3) Altered mental status Conclusion/Plan: Transient altered mental status after 3 days ED stay, along with new UTI associated with chronic Ayon exchange Likely delirium Currently AAO x 3 Frequent orientation 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
--- NOTE | 2023-12-21 13:31 | CT Report ---
PROCEDURE: Abdomen/Pelvis WO INDICATIONS: Abd pain TECHNIQUE: A CT scan of the abdomen and pelvis was performed without the use of intravenous contrast. Images we re recorded and evaluated at appropriate window settings. Reformats: coronal and sagittal. For radiat ion dose reduction, the following was used: automated exposure control, adjustment of mA and/or kV ac cording to patient size. COMPARISON: None. FINDINGS: Image quality: Diagnostic. Lower chest: Unremarkable. Liver: No contour-deforming mass. Segment 2 hepatic cyst measuring 1.2 cm. Nodularity of the posterio r, inferior right hepatic lobe is nonspecific. Gallbladder and biliary tree: Spleen: No splenomegaly. Pancreas: No pancreatic ductal dilation. Adrenals: No adrenal nodule. Kidneys and ureters: No hydronephrosis. No renal cystic lesion which requires follow up. No solid mas s. Stomach, bowel and peritoneum: No bowel distension. No pathologic free fluid. Lymph nodes: No central or retroperitoneal adenopathy. Vessels: No infrarenal aortic aneurysm. PELVIS Reproductive organs: Prostate calcifications. Bladder: Urinary bladder is compressed around a Ayon catheter. A couple of bladder stones are presen t measuring 1.5 cm and 1.5 cm (Hounsfield units 500 600). Pelvic lymph nodes: Pelvic adenopathy. For example: -1.5 cm left internal iliac chain node (series 2, image 107). -2.3 cm right external iliac chain node (series 2, image 101). -1.2 cm right common iliac chain node (series 2, image 75). Bones: No aggressive osseous abnormality. Chronic anterior compression deformity of the L1 vertebral body, without endplate retropulsion. Other: Tiny left inguinal hernia containing fat. IMPRESSION: No hydronephrosis or obstructing renal stone. A couple bladder stones measuring 1.5 cm. Bladder is compressed around a Ayon catheter. Pelvic adenopathy, size and appearance is highly concerning for either yaz disease or lymphoma. Con siderations include prostate cancer, bladder cancer or rectal cancer. Recommend oncology workup, if t his is a new finding. Reviewed by: Juno Sanchez MD on 12/21/2023 1:30 PM PST Approved by: Juno Sanchez MD on 12/21/2023 1:30 PM PST Station ID: [id number]
[2023-12-21] MEDS: ENOXAPARIN 40 MG/0.4 ML SYRINGE SUBQ SCH (13:49)
[2023-12-21] MEDS: SODIUM CHLORIDE 0.9% 1,000 ML IV SCH (13:55)
[2023-12-21] MEDS: oxyCODONE 5 MG TABLET PO PRN (14:52)
[2023-12-21] MEDS: LORazepam 0.5 MG TABLET PO PRN (20:08)
[2023-12-21] MEDS: ESCITALOPRAM 10 MG TABLET PO SCH (20:10)
[2023-12-21] MEDS: SODIUM CHLORIDE FLUSH 0.9% 10 ML SYRINGE IVP SCH (20:10)
[2023-12-22 06:05] LABS: BASOPHILS % (AUTO) 0.6 %; EOSINOPHILS # (AUTO) 0.4 10^3/uL (0.0-0.7); EOSINOPHILS % (AUTO) 6.6 %; HGB - HEMOGLOBIN 12.3 g/dL (14.0-18.0); LYMPHOCYTES # (AUTO) 1.6 10^3/uL (1.5-3.5); MEAN CORPUSCULAR HEMOGLOBIN 32.1 pg (27.0-31.0); MEAN CORPUSCULAR HGB CONC 32.4 g/dL (32.0-36.0); MEAN CORPUSCULAR VOLUME 99.2 fL (80.0-94.0); MONOCYTES # (AUTO) 0.6 10^3/uL (0.0-1.0); MONOCYTES % (AUTO) 9.3 %; NEUTROPHILS # (AUTO) 3.6 10^3/uL (1.5-6.6); NEUTROPHILS % (AUTO) 57.2 %; PLT - PLATELET COUNT 111 10^3/uL (130-450); RED BLOOD COUNT 3.83 10^6/uL (4.70-6.10); WHITE BLOOD COUNT 6.2 x10^3/uL (4.8-10.8)
[2023-12-22 06:14] LABS: CALCIUM 9.6 mg/dL (8.5-10.3); CREATININE 0.9 mg/dL (0.6-1.3); POTASSIUM 4.1 mmol/L (3.5-4.5)
--- NOTE | 2023-12-22 07:12 | PROVIDER PROGRESS NOTE ---
Assessment/Plan - Problem List (1) UTI (urinary tract infection) due to urinary indwelling catheter Qualifiers: Indwelling urinary catheter type: indwelling urethral catheter Assessment/Plan: improving Delirium resolved No fever or chills, urine appears clear -continue ceftriaxone -woods care per unit routine (2) Altered mental status Qualifiers: Altered mental status type: delirium Qualified Code(s): R41.0 - Disorientation, unspecified Assessment/Plan: Resolved AMS is due to delirium (3) Chronic back pain Assessment/Plan: chronic patient reports the back pain is worsened, needs more oxycodone -give home dose oxycodon -prn oxycodone for breakthrough pain - Current Meds Current Meds: Current Medications Generic Name Dose Route Start Last Admin Trade Name Freq PRN Reason Stop Dose Admin Docusate Sodium 250 mg 12/20/23 09:00 12/21/23 08:04 Docusate Sodium 250 Mg Capsule PO 250 mg DAILY JOSE E Administration Enoxaparin Sodium 40 mg 12/21/23 13:00 12/21/23 13:49 Enoxaparin 40 Mg/0.4 Ml Syringe SUBQ 40 mg DAILY JOSE E Administration Escitalopram Oxalate 10 mg 12/21/23 21:00 12/21/23 20:10 Escitalopram 10 Mg Tablet PO Not Given DAILY JOSE E Finasteride 5 mg 12/19/23 09:00 12/21/23 08:04 Finasteride 5 Mg Tablet PO 5 mg DAILY JOSE E Administration Lorazepam 0.5 mg 12/21/23 16:56 12/21/23 20:08 Lorazepam 0.5 Mg Tablet PO 0.5 mg Q6H PRN Administration Anxiety Oxycodone HCl 5 mg 12/21/23 03:00 12/22/23 03:14 Oxycodone 5 Mg Tablet PO 5 mg Q6H JOSE E Administration Oxycodone HCl 5 mg 12/21/23 12:02 12/21/23 14:52 Oxycodone 5 Mg Tablet PO 5 mg Q4HR PRN Administration Pain 5 to 7 Sodium Chloride 10 ml 12/21/23 17:00 12/22/23 00:03 Sodium Chloride Flush 0.9% 10 Ml Syringe IVP 10 ml 0100,0900,1700 JOSE E Administration - Lab Result Fish Bone Diagrams: 12/22/23 05:25 12/22/23 05:25 - Diagnostic Imaging Results Diagnostic Imaging Results: Final report reviewed - Additional Planning Condition/Complexity: Improved My Orders: My Active Orders 12/21/23 12:02 Activity Orders [RC] Q2HR IO [RC] IOSHIFT Incentive Spirometry - RT [RC] TID Initiate Bowel Care Protocol [RC] .protocol Initiate Bronchodialator Jes [RC] .PROTOCOL Initiate Line Care Protocol [RC] QSHIFT Initiate Personal Care Protoco [RC] .protocol Initiate Secretion Clearance P [RC] .PROTOCOL Oxygen Therapy [RC] .PRN Vital Signs [RC] 0800,1600,0000 Ondansetron Inj [Zofran Inj] 4 mg IVP Q6HR PRN Ondansetron Odt [Zofran Odt] 4 mg TL Q6HR PRN Sodium Chloride Flush 0.9% [Normal Saline Flush 0.9%] 10 ml IVP PRN PRN oxyCODONE [Roxicodone] 5 mg PO Q4HR PRN Code Status [OTHERS] Routine Condition of Patient [OTHERS] Routine DVT Prophylaxis [OTHERS] Routine 12/21/23 13:00 Enoxaparin [Lovenox] 40 mg SUBQ DAILY 12/21/23 Dinner DIET [Regular Diet] [DIET] 12/21/23 16:56 LORazepam [Ativan] 0.5 mg PO Q6H PRN 12/21/23 17:00 Sodium Chloride Flush 0.9% [Normal Saline Flush 0.9%] 10 ml IVP 0100,0900,1700 12/21/23 21:00 Escitalopram [Lexapro] 10 mg PO DAILY 12/22/23 09:00 cefTRIAXone [Rocephin] 1 gm Sodium Chloride 0.9% Minibag [Normal Saline 0.9% M inibag] 100 ml IV DAILY 12/23/23 05:00 BMP - BASIC METABOLIC PANEL [CHEM] DAILYLAB CBC [CBC - COMP BLD CT W/AUTO DIFF] [HEME] DAILYLAB 12/24/23 05:00 BMP - BASIC METABOLIC PANEL [CHEM] DAILYLAB CBC [CBC - COMP BLD CT W/AUTO DIFF] [HEME] DAILYLAB 12/25/23 05:00 BMP - BASIC METABOLIC PANEL [CHEM] DAILYLAB CBC [CBC - COMP BLD CT W/AUTO DIFF] [HEME] DAILYLAB 12/26/23 05:00 BMP - BASIC METABOLIC PANEL [CHEM] DAILYLAB CBC [CBC - COMP BLD CT W/AUTO DIFF] [HEME] DAILYLAB Time Spent: 15-30 minutes Additional Planning Notes: patient responds to treatment well, patient is medically stable for discharge, await for SNF bed available. Subjective - Subjective Patient Reports: Feeling Better, Back Pain (back pain worsened), Other Objective Vital Signs: Vital Signs - 24 hr 12/21/23 12/21/23 12/21/23 08:23 11:00 13:52 Temperature 36.4 C L 37.1 C Heart Rate 70 72 Heart Rate [ 74 Brachial] Respiratory 24 13 20 Rate Blood Pressure 139/88 H 150/95 H Blood Pressure [Left Brachial artery] Blood Pressure 143/82 H [Right Brachial artery] O2 Saturation 94 96 96 12/21/23 12/22/23 15:52 00:05 Temperature 36.6 C 36.8 C Heart Rate Heart Rate [ 75 69 Brachial] Respiratory 20 16 Rate Blood Pressure Blood Pressure 109/70 149/77 H [Left Brachial artery] Blood Pressure [Right Brachial artery] O2 Saturation 97 98 Oxygen O2 Source Room air I&O (Last 24 Hrs): Intake and Output Totals x24h 12/20/23 12/21/23 12/22/23 23:59 23:59 23:59 Intake Total 1050 1000 Output Total 2475 650 Balance -1425 350 General: Alert, Oriented x3 HEENT: PERRLA, EOMI Cardiovascular: Regular rate Respiratory: Chest non-tender, No respiratory distress Abdomen: No tenderness Extremities: No edema - Results Results: Laboratory Results WBC 6.2 x10^3/uL (4.8-10.8) 12/22/23 05:25 RBC 3.83 10^6/uL (4.70-6.10) L 12/22/23 05:25 Hgb 12.3 g/dL (14.0-18.0) L 12/22/23 05:25 Hct 38.0 % (42.0-52.0) L 12/22/23 05:25 MCV 99.2 fL (80.0-94.0) H 12/22/23 05:25 MCH 32.1 pg (27.0-31.0) H 12/22/23 05:25 MCHC 32.4 g/dL (32.0-36.0) 12/22/23 05:25 RDW 13.0 % (12.0-15.0) 12/22/23 05:25 Plt Count 111 10^3/uL (130-450) L 12/22/23 05:25 MPV 12.0 fL (7.4-11.4) H 12/22/23 05:25 Neut # (Auto) 3.6 10^3/uL (1.5-6.6) 12/22/23 05:25 Lymph # (Auto) 1.6 10^3/uL (1.5-3.5) 12/22/23 05:25 [place] # (Auto) 0.6 10^3/uL (0.0-1.0) 12/22/23 05:25 Eos # (Auto) 0.4 10^3/uL (0.0-0.7) 12/22/23 05:25 Baso # (Auto) 0.0 10^3/uL (0.0-0.1) 12/22/23 05:25 Absolute Nucleated RBC 0.00 x10^3/uL 12/22/23 05:25 Nucleated RBC % 0.0 /100WBC 12/22/23 05:25 Sodium 137 mmol/L (135-145) 12/22/23 05:25 Potassium 4.1 mmol/L (3.5-4.5) 12/22/23 05:25 Chloride 106 mmol/L (101-111) 12/22/23 05:25 Carbon Dioxide 25 mmol/L (21-32) 12/22/23 05:25 Anion Gap 6.0 (6-13) 12/22/23 05:25 BUN 17 mg/dL (6-20) 12/22/23 05:25 Creatinine 0.9 mg/dL (0.6-1.3) 12/22/23 05:25 Estimated GFR (MDRD) 81 (>89) L 12/22/23 05:25 Glucose 140 mg/dL (74-104) H 12/22/23 05:25 Lactic Acid 0.9 mmol/L (0.5-2.2) 12/21/23 11:02 Calcium 9.6 mg/dL (8.5-10.3) 12/22/23 05:25 Magnesium 1.8 mg/dL (1.7-2.3) 12/21/23 08:03 Total Bilirubin 0.6 mg/dL (0.2-1.0) 12/21/23 08:03 AST 13 IU/L (10-42) 12/21/23 08:03 ALT 15 IU/L (10-60) 12/21/23 08:03 Alkaline Phosphatase 47 IU/L (42-121) 12/21/23 08:03 Total Protein 6.4 g/dL (6.4-8.9) 12/21/23 08:03 Albumin 4.1 g/dL (3.2-5.5) 12/21/23 08:03 Globulin 2.3 g/dL (2.1-4.2) 12/21/23 08:03 Albumin/Globulin Ratio 1.8 (1.0-2.2) 12/21/23 08:03 Lipase < 10 U/L (11-82) L 12/21/23 08:03 Urine Color YELLOW 12/21/23 08:10 Urine Clarity CLEAR (CLEAR) 12/21/23 08:10 Urine pH 6.0 PH (5.0-7.5) 12/21/23 08:10 Ur Specific Daniel <=1.005 (1.002-1.030) 12/21/23 08:10 Urine Protein NEGATIVE mg/dL (NEGATIVE) 12/21/23 08:10 Urine Glucose (UA) NEGATIVE mg/dL (NEGATIVE) 12/21/23 08:10 Urine Ketones NEGATIVE mg/dL (NEGATIVE) 12/21/23 08:10 Urine Occult Blood LARGE (NEGATIVE) H 12/21/23 08:10 Urine Nitrite POSITIVE (NEGATIVE) H 12/21/23 08:10 Urine Bilirubin NEGATIVE (NEGATIVE) 12/21/23 08:10 Urine Urobilinogen 0.2 (NORMAL) E.U./dL (NORMAL) 12/21/23 08:10 Ur Leukocyte Esterase MODERATE (NEGATIVE) H 12/21/23 08:10 Urine RBC TNTC /HPF (0-5) H 12/21/23 08:10 Urine WBC >25 /HPF (0-3) H 12/21/23 08:10 Urine WBC Clumps PRESENT 12/21/23 08:10 Ur Squamous Epith Cells FEW Squamous (<= Few) 12/21/23 08:10 Urine Bacteria Few /HPF (None Seen) 12/21/23 08:10 Ur Microscopic Review INDICATED 12/21/23 08:10 Urine Culture Comments INDICATED 12/21/23 08:10 Sepsis Event Note (H) - Evaluation Current Stage of Sepsis: Ruled out ABX Reporting Has patient been on IV antibiotics over the past 48 hours?: Yes
[2023-12-22] MEDS: cefTRIAXone 1 GM in SODIUM CHLORIDE 0.9% MINIBAG 100 ML IV SCH (08:56)
--- NOTE | 2023-12-22 10:31 | PHARMACY PROGRESS NOTE ---
- Best Possible Medication History Admit Date and Time: 12/21/23 1202 Processed by: Nursing Medications reviewed in ED?: Yes Medication History completed: Yes Patient Interview: Completed Secondary Source(s): Insurance records As the person ultimately responsible for medication therapy, providers are able to order a medication from an existing home medication list in [facility] via the "Reconcile Routine" prior to Confirmation of that medication by operations support professionals. Such practice is discouraged except when the physician, in their clinical judgment, deems that a medical need exists for a medication without regard to previous use.
[2023-12-22] MEDS ORDERED: oxyCODONE 5 MG TABLET PO PRN (11:35)
[2023-12-23 07:12] LABS: CALCIUM 9.4 mg/dL (8.5-10.3); CREATININE 0.8 mg/dL (0.6-1.3); POTASSIUM 4.4 mmol/L (3.5-4.5)
[2023-12-23 08:33] VITALS: BP 120/82; O2SAT 97
[2023-12-23 09:58] LABS: BASOPHILS % (AUTO) 0.7 %; EOSINOPHILS # (AUTO) 0.4 10^3/uL (0.0-0.7); EOSINOPHILS % (AUTO) 6.7 %; HCT - HEMATOCRIT 36.3 % (42.0-52.0); HGB - HEMOGLOBIN 12.1 g/dL (14.0-18.0); LYMPHOCYTES # (AUTO) 1.9 10^3/uL (1.5-3.5); LYMPHOCYTES % (AUTO) 31.5 %; MEAN CORPUSCULAR HEMOGLOBIN 33.1 pg (27.0-31.0); MEAN CORPUSCULAR HGB CONC 33.3 g/dL (32.0-36.0); MEAN CORPUSCULAR VOLUME 99.2 fL (80.0-94.0); MEAN PLATELET VOLUME 12.2 fL (7.4-11.4); MONOCYTES # (AUTO) 0.6 10^3/uL (0.0-1.0); MONOCYTES % (AUTO) 9.4 %; NEUTROPHILS # (AUTO) 3.2 10^3/uL (1.5-6.6); NEUTROPHILS % (AUTO) 51.2 %; PLT - PLATELET COUNT 110 10^3/uL (130-450); RED BLOOD COUNT 3.66 10^6/uL (4.70-6.10); RED CELL DISTRIBUTION WIDTH 13.1 % (12.0-15.0); WHITE BLOOD COUNT 6.2 x10^3/uL (4.8-10.8)
[2023-12-23] MEDS: SENNA 8.6 MG TABLET PO SCH (10:14)
--- NOTE | 2023-12-23 10:59 | Discharge Plan ---
"Discharge Plan for SNF / NICOLE - Discharge Plan And Transition Orders Problem Reviewed?: Yes Disposition: SNF DC/Xfer Condition: Stable Allergies and Adverse Reactions: Allergies Allergy/AdvReac Type Severity Reaction Status Date / Time acetaminophen Allergy Unknown Verified 12/18/23 12:01 aspirin Allergy Unknown Verified 12/18/23 12:01 fluoxetine Allergy Unknown Verified 12/18/23 12:01 ibuprofen Allergy Unknown Verified 12/18/23 12:01 Health Concerns: UTI, Klebsiella bacteriuria, related to chronic Ayon Received 3 doses of ceftriaxone during hospital stay Continue with Augmentin for 5 days Follow-up with urology as outpatient Plan of Treatment: Continue with Augmentin for 5 days, follow-up with PCP and urology Chronic Ayon, Ayon care per unit protocol Care Goals: The goal is to treat the urinary tract infection Continue physical therapy and Occupational Therapy in the short-term rehab To regain baseline function Assessment: Medically stable for discharge - SNF / [facility] Transition Orders Admit to (Facility): [facility] Under the care of (Name): Facility provider Discharge Diagnosis: UTI, Klebsiella bacteriuria, secondary to chronic Ayon Medicare Certification Statement: I certify that Post Hospital usp care is medically necessary on a continuing basis for any of the conditions for which she/he is receiving care during hospitalization. Notify PCP of admission and forward orders to primary provider for signature. Weight on admission and: Weekly Other Notification Orders: Call PCP immediately if patient develops dyspnea, chest pain/tightness or edema. House Bowel Program: Yes Additional Bowel Program Orders: If no BM after 2 days, nurse may give M.O.M. 30ml PO PRN and/or ducolax Supp 1 [place] and/or ALEXANDRO 250mg P.O., and/or senna 1-2 tabs PO. On day 3 nurse may give repeat above order until residents constipation is resolved. Treatments & Other Orders: Physical therapy. Occupational Therapy. Ayon care Medication Orders: PLEASE REFER TO THE DISCHARGE MEDICATION LIST. Active Medications Amoxicillin/Clavulanate Potassium (Amox/Clav 875 Mg/125 Mg Tablet) 1 tab PO BID [facility] Stop: 12/29/23 08:59 Docusate Sodium (Docusate Sodium 250 Mg Capsule) 250 mg PO DAILY [facility] Last Admin: 12/23/23 08:57 Dose: 250 mg Enoxaparin Sodium (Enoxaparin 40 Mg/0.4 Ml Syringe) 40 mg SUBQ DAILY [facility] Last Admin: 12/23/23 08:58 Dose: 40 mg Finasteride (Finasteride 5 Mg Tablet) 5 mg PO DAILY [facility] Last Admin: 12/23/23 08:57 Dose: 5 mg Ceftriaxone Sodium 1 gm/ (Sodium Chloride) 100 mls @ 200 mls/hr IV DAILY [facility] Last Infusion: 12/23/23 10:18 Dose: Infused {discontinued at time of discharge) Lorazepam (Lorazepam 0.5 Mg Tablet) 0.5 mg PO Q6H PRN PRN Reason: Anxiety Last Admin: 12/22/23 21:50 Dose: 0.5 mg Ondansetron HCl (Ondansetron Odt 4 Mg Tablet) 4 mg TL Q6HR PRN PRN Reason: Nausea / Vomiting Ondansetron HCl (Ondansetron 4 Mg/2 Ml Vial) 4 mg IVP Q6HR PRN PRN Reason: Nausea / Vomiting Oxycodone HCl (Oxycodone 5 Mg Tablet) 5 mg PO Q6H [facility] Last Admin: 12/23/23 08:57 Dose: 5 mg Oxycodone HCl (Oxycodone 5 Mg Tablet) 5 mg PO Q4HR PRN PRN Reason: Pain 5 to 7 Last Admin: 12/23/23 05:56 Dose: 5 mg Oxycodone HCl (Oxycodone 5 Mg Tablet) 5 mg PO ONCE PRN PRN Reason: Moderate Pain (Level 4-6) Stop: 12/23/23 11:34 Senna (Senna 8.6 Mg Tablet) 8.6 - 17.2 mg PO DAILY [facility] Last Admin: 12/23/23 10:14 Dose: 17.2 mg Sodium Chloride (Sodium Chloride Flush 0.9% 10 Ml Syringe) 10 ml IVP 0100,0900,1700 [facility] Last Admin: 12/23/23 08:59 Dose: 10 ml Sodium Chloride (Sodium Chloride Flush 0.9% 10 Ml Syringe) 10 ml IVP PRN PRN PRN Reason: NEEDED PER PROVIDER ORDERS Finasteride [Proscar] 5 mg PO DAILY 12/18/23 oxyCODONE [Roxicodone] 5 mg PO ONCE 12/18/23 Albuterol Sulfate [Proventil Hfa] 1 - 2 puffs INH UD 12/21/23 Escitalopram [Lexapro] 10 mg PO HS 12/21/23 LORazepam [Ativan] 0.5 mg PO TID 12/21/23 Insulin Orders?: No - Medications New Prescriptions: Amox/Clav 875/125 [Augmentin 875/125 Tab] 1 tab PO BID 5 Days #10 tab - Diet Type: Geriatric Texture: Regular Liquids: Thin May have monthly special meal: Yes - Therapies | Activity Therapy: Evaluation | Treat if indicated: PT, OT Rehabilitation Potential: Maximize functional status, Return to independent living Activity: Activity as Tolerated Weight Bearing: Full Weight Follow Up: PCP, urology"
--- NOTE | 2023-12-23 11:09 | DISCHARGE SUMMARY ---
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 At that time, urine has no sign of infection. Due to social issue patient had 72 hours ED stay, await for SNF placement. However on 12/21/2023, patient developed altered mental status, appears to be confused and agitated, in need of Haldol treatment. Further workup shows UA has positive nitrate and LE. Urine culture collected and blood culture collected, patient was given ceftriaxone for UTI secondary to chronic Ayon exchange. - HOSPITAL COURSE Hospital Course: During hospital stay, patient mental status improved without further confusion. It appears the transient altered mental status is due to delirium for been staying in the ED in the room for 72 hours. Patient has been receiving ceftriaxone for 3 doses during hospital stay. Blood culture no growth to date, urine culture shows Klebsiella pansensitive. Patient also complains of chronic back pain has been on oxycodone home dose, with some improvement. During hospital stay patient vitals has been stable no fever no tachycardia no hypotension. Patient is medically stable for discharge to short-term rehab, continue Augmentin for 5 days and follow-up with PCP and urology - ALLERGIES Allergies/Adverse Reactions: Allergies Allergy/AdvReac Type Severity Reaction Status Date / Time acetaminophen Allergy Unknown Verified 12/18/23 12:01 aspirin Allergy Unknown Verified 12/18/23 12:01 fluoxetine Allergy Unknown Verified 12/18/23 12:01 ibuprofen Allergy Unknown Verified 12/18/23 12:01 - MEDICATIONS Home Medications: Ambulatory Orders Medication Instructions Recorded Confirmed Finasteride [Proscar] 5 mg PO DAILY 12/18/23 12/18/23 oxyCODONE [Roxicodone] 5 mg PO ONCE 12/18/23 12/18/23 Albuterol Sulfate [Proventil Hfa] 1 - 2 puffs INH UD 12/21/23 12/21/23 Escitalopram [Lexapro] 10 mg PO HS 12/21/23 12/21/23 LORazepam [Ativan] 0.5 mg PO TID 12/21/23 12/21/23 Amox/Clav 875/125 [Augmentin 1 tab PO BID 5 Days #10 tab 12/23/23 875/125 Tab] - PHYSICAL EXAM AT DISCHARGE General Appearance: positive: No acute distress, Alert Eyes Bilateral: positive: Normal inspection ENT: positive: ENT inspection nml Neck: positive: Nml inspection Respiratory: positive: Chest non-tender Cardiovascular: positive: Regular rate & rhythm Peripheral Pulses: positive: 2+ Abdomen: positive: Non-tender Back: positive: Nml inspection Skin: positive: Color nml Extremities: positive: Full ROM, No pedal edema Neurologic/Psychiatric: positive: Oriented x3, CN's nml (2-12) - LABS Result Diagrams: 12/23/23 05:52 12/23/23 05:52 - DIAGNOSTIC IMAGING Diagnostic Imaging Results: Final report reviewed - SEPSIS Current Stage of Sepsis: Ruled out - FOLLOW UP Follow Up: PCP and urologist - TIME SPENT Time Spent in Discharge (Minutes): 55
[2023-12-24] MEDS ORDERED: AMOX/CLAV 875 MG/125 MG TABLET PO SCH (09:00)
== END 2023-12-23 12:55 | DRG 700 ==
LOC: EDUNIT# → ED 11:17 → MS2 12-20 12:02 → UNDOADMIN 12-20 12:02 → MS2 12-21 12:02
PROVIDERS: ADMIT Internal Medicine; ATTEND Internal Medicine
DX: T83.511A Infection and inflammatory reaction due to indwelling urethral catheter, initial encounter (principal); N39.0 Urinary tract infection, site not specified; Y84.6 Urinary catheterization as the cause of abnormal reaction of the patient, or of later complication, without mention of misadventure at the time of the procedure; D72.829 Elevated white blood cell count, unspecified; G62.9 Polyneuropathy, unspecified; Z96.0 Presence of urogenital implants; R51.9 Headache, unspecified; R07.81 Pleurodynia; B96.1 Klebsiella pneumoniae [K. pneumoniae] as the cause of diseases classified elsewhere; G89.29 Other chronic pain; M54.9 Dorsalgia, unspecified; R41.0 Disorientation, unspecified; N40.0 Benign prostatic hyperplasia without lower urinary tract symptoms; F41.9 Anxiety disorder, unspecified; F32.A Depression, unspecified; E86.0 Dehydration; Z79.899 Other long term (current) drug therapy; Z87.442 Personal history of urinary calculi; Z88.6 Allergy status to analgesic agent; Z88.8 Allergy status to other drugs, medicaments and biological substances
CPT/HCPCS: 36415; 70450; 71101; 74176; 80048; 80053; 81001; 81003; 83605; 83690; 83735; 85025; 87040; 87077; 87086; 87181; 93005; 97116; 97162; 97166; 97530; 99285; A9270; J1200; J1650